=== PATIENT | female | born 1945 ===

== ENCOUNTER 2023-05-23 11:45 | Inpatient (IN) | payer OTHER ==
[~2023-05-23] VITALS: Ht 152.4 cm; Wt 47.6 kg
[2023-05-24] MEDS ORDERED: LEVOTHYROXINE25 MCG PO (13:23)
[2023-05-24] MEDS ORDERED: HORIZANT300 MG PO (13:24)
[2023-05-24] MEDS ORDERED: COZAAR100 MG PO (13:24)
[2023-05-24] MEDS ORDERED: GLIPIZIDE XL5 MG PO (13:24)
[2023-05-29] MEDS ORDERED: GRALISE600 MG (10:53)
[2023-05-29] MEDS ORDERED: LEVO-T25 MCG PO (10:54)
== END 2023-05-30 14:56 | disposition home or self-care (01) | DRG 331 ==
LOC: O/R 05-28 05:21 → SURH 05-28 05:21 → SURG 05-28 10:15 → SURH 05-28 10:27 → SURG 05-28 15:00 → SURH 05-30 14:56
PROVIDERS: ADMIT Colon & Rectal Surgery; ATTEND Colon & Rectal Surgery
PROC: 0DQP4ZZ Repair Rectum, Percutaneous Endoscopic Approach (ICD-10-PCS; principal; 2023-05-28 15:00)
DX: K62.3 Rectal prolapse (principal); R15.9 Full incontinence of feces; N73.6 Female pelvic peritoneal adhesions (postinfective); N99.4 Postprocedural pelvic peritoneal adhesions; I10 Essential (primary) hypertension; E03.9 Hypothyroidism, unspecified